=== PATIENT | female | born 2000 | race Hispanic/Latino ===

== ENCOUNTER 2022-05-23 21:44 | Emergency (ER) | payer OTHER ==
[~2022-05-23] VITALS: Ht 162.6 cm; Wt 104.3 kg
[2022-05-23] MEDS ORDERED: BUPIVACAINE 0.5%/EPI 30 ML SDV INJ ONE (22:00)
[2022-05-23] MEDS ORDERED: BUPIVACAINE HCL 0.5% 10ML MPF VIAL INJ ONE ×2 (22:16→23:00)
[2022-05-23] MEDS ORDERED: TETANUS/DIPHTHERIA TOX ADULT 0.5 ML SYR ONE (22:16)
[2022-05-23] MEDS ORDERED: TETANUS/DIPHTHERIA TOX ADULT 0.5 ML SYR IM ONE (22:30)
[2022-05-23] MEDS ORDERED: BUPIVACAINE 0.25% 30ML SDV INJ ONE (22:30)
== END 2022-05-23 22:37 | disposition home or self-care (01) ==
LOC: ER 21:57
DX: S81.012A Laceration without foreign body, left knee, initial encounter (principal); W22.01XA Walked into wall, initial encounter; Y93.66 Activity, soccer; Y99.8 Other external cause status; Z23 Encounter for immunization
CPT/HCPCS: 90471; 90714; 99283